=== PATIENT | male | born 1980 | race Caucasian/White ===

== ENCOUNTER 2019-03-17 23:12 | Emergency (ER) | payer BC ==
[~2019-03-17] VITALS: Ht 172.7 cm; Wt 92.1 kg
[~2019-03-17 23:12] MED LIST: IBUPROFEN 200200 M1 PO; NORCO 5-325 TA1 EACH PO; PENICILLIN V P500 MG PO
[2019-03-18 00:35] VITALS: BP 133/81
== END 2019-03-18 00:36 | disposition home or self-care (01) ==
LOC: ER 23:12
DX: B00.1 Herpesviral vesicular dermatitis (principal); R51 Headache